=== PATIENT | female | born 1980 | race Caucasian/White ===

== ENCOUNTER → 2025-02-26 | Outpatient (RCR) | payer OTHER ==
[~2025-02-26] MED LIST: ALPRAZOLAM1 MG PO; AMBIEN10 MG PO; CYCLOBENZAPRINE10 MG PO; CYMBALTA30 MG PO; LYSINE1000 MG PO; OZEMPIC1 MG/0.71 SQ; TERBINAFINE HC250 MG PO; TIZANIDINE HCL4 MG PO; TRAZODONE HCL50 MG PO; VALACYCLOVIR500 MG PO; VITAMIN C1000 MG PO; VITAMIN D3125 MCG PO
== END ==
LOC: OT 08:35
PROVIDERS: ATTEND Orthopaedic Surgery Hand Surgery
DX: S52.501D Unspecified fracture of the lower end of right radius, subsequent encounter for closed fracture with routine healing (principal); G56.01 Carpal tunnel syndrome, right upper limb; G56.02 Carpal tunnel syndrome, left upper limb; G56.22 Lesion of ulnar nerve, left upper limb; M25.531 Pain in right wrist; M25.631 Stiffness of right wrist, not elsewhere classified; R20.2 Paresthesia of skin; R53.1 Weakness

== ENCOUNTER 2025-03-08 06:26 | Observation (INO) | payer OTHER ==
[2025-03-06 10:38] LABS: BASOPHILS # (AUTO) 0.1 (0.0-0.1); BASOPHILS % 1.2 % (0.0-1.0); EOSINOPHILS # (AUTO) 0.2 (0.0-0.4); EOSINOPHILS % 3.7 % (0.0-6.0); HEMATOCRIT 39.7 % (34.2-44.1); HEMOGLOBIN 13.4 g/dL (12.0-16.0); LYMPHOCYTES % 33.9 % (18.0-39.1); MEAN CORPUSCULAR HEMOGLOBIN 31.2 pg (28-32); MEAN CORPUSCULAR HGB CONC 33.8 g/dL (31-35); MEAN CORPUSCULAR VOLUME 92.3 fL (81-99); MONOCYTES # (AUTO) 0.5 (0.2-0.8); MONOCYTES % 7.5 % (4.4-11.3); NEUTROPHILS # (AUTO) 3.2 (2.1-6.9); NEUTROPHILS % 53.4 % (38.7-80.0); PLATELET COUNT 236 x10e3/uL (140-360); RED CELL DISTRIBUTION WIDTH 11.9 % (11.7-14.4); WHITE BLOOD COUNT 6.02 x10e3/uL (4.8-10.8)
[2025-03-06 10:56] LABS: ANION GAP 13.3 mmol/L (8-16); CALCIUM 9.2 mg/dL (8.4-10.2); CREATININE, SERUM 0.86 mg/dL (0.57-1.11); POTASSIUM 4.3 mmol/L (3.5-5.1)
[2025-03-06 11:10] LABS: INR 0.91; PROTHROMBIN TIME 12.8 seconds (11.9-14.5)
[2025-03-06 11:11] LABS: PARTIAL THROMBOPLASTIN TIME 29.2 seconds (23.8-35.5)
[~2025-03-08] VITALS: Ht 157.5 cm; Wt 72.6 kg
[2025-03-08] MEDS ORDERED: LIDOCAINE HCL 2% LOCAL INJ 5 ML SDV VIAL INJ ONE (07:22)
[2025-03-08] MEDS ORDERED: ROCURONIUM BROMIDE 1 ML IV ONE ×2 (07:22→10:14)
[2025-03-08] MEDS ORDERED: PROPOFOL IV EMULSION 10 MG/ML 20 ML VIAL ONE (07:23)
[2025-03-08] MEDS ORDERED: MIDAZOLAM HCL 2 MG/2 ML VIAL ONE (07:23)
[2025-03-08] MEDS ORDERED: FENTANYL CITRATE/PF 100MCG/2 ML INJ ONE ×2 (07:23→10:16)
[2025-03-08] MEDS ORDERED: ACETAMINOPHEN 1000 MG/100 ML 100 ML IV ONE (07:23)
[2025-03-08] MEDS ORDERED: SEVOFLURANE INHAL SOLN 250 ML PEN BTL ONE (07:23)
[2025-03-08] MEDS: LACTATED RINGER'S 1,000 ML ONE (08:17)
[2025-03-08] MEDS: CEFAZOLIN SODIUM 2 GM ONE (08:17)
[2025-03-08] MEDS ORDERED: FAMOTIDINE 20 MG/2 ML VIAL IV ONE (09:46)
[2025-03-08] MEDS ORDERED: DEXAMETHASONE SOD PHOS INJ 4 MG/ML SDV ONE (10:05)
[2025-03-08] MEDS ORDERED: ONDANSETRON HCL INJ 2MG/ML 2ML 2 MG/ML VIAL ONE (10:05)
[2025-03-08] MEDS ORDERED: SUGAMMADEX SODIUM 200 MG/2 ML VIAL IV ONE (10:22)
[2025-03-08] MEDS ORDERED: ONDANSETRON HCL INJ 2MG/ML 2ML 2 MG/ML VIAL IV PRN (11:15)
[2025-03-08] MEDS ORDERED: Morphine 10mg syringe 10 MG/ML INJ IM PRN (11:15)
[2025-03-08] MEDS ORDERED: PROMETHAZINE HCL (IM) 25 MG/ML VIAL IM PRN (11:15)
[2025-03-08] MEDS ORDERED: CEPACOL SORE THROAT LOZENGES PO PRN (11:15)
[2025-03-08] MEDS ORDERED: MAGNESIUM/ALUMINUM/SIMETHICONE 30 ML UDC PO PRN (11:15)
[2025-03-08] MEDS ORDERED: ACETAMINOPHEN 325 MG TAB PO PRN (11:15)
[2025-03-08] MEDS ORDERED: HYDROCODON-ACE1 EA12 PO (11:17)
[2025-03-08] MEDS: FENTANYL CITRATE/PF 100MCG/2 ML INJ ONE (11:49)
[2025-03-08] MEDS: MEPERIDINE HCL INJ 25 MG/ML VIAL ONE (11:49)
[2025-03-08 11:55] VITALS: BP 143/77; PULSE 93; RESP 18; TEMP 97.6; O2SAT 96
[2025-03-08] MEDS: LACTATED RINGER'S 1,000 ML IV SCH (12:07)
[2025-03-08] MEDS: CARISOPRODOL 350 MG TAB PO PRN (12:11)
[2025-03-08] MEDS: OXYCODONE/ACETAMINOPHEN 5-325 1 EACH TABLET PO PRN (12:11)
[2025-03-08] MEDS ORDERED: OXYCODONE/ACETAMINOPHEN 5-325 1 EACH TABLET PO PRN (12:15)
[2025-03-08 12:18] VITALS: BP 143/77; PULSE 93; RESP 18; TEMP 97.6; O2SAT 96
[2025-03-08] MEDS: ALPRAZOLAM 1 MG TAB PO SCH (15:28)
[2025-03-08] MEDS: CYCLOBENZAPRINE HCL 10 MG TAB PO SCH (15:28)
[2025-03-08 20:00] VITALS: BP 112/72; PULSE 83; RESP 16; TEMP 98; O2SAT 100
[2025-03-08] MEDS: ZOLPIDEM TARTRATE 10 MG TAB PO SCH (20:23)
[2025-03-08] MEDS: TIZANIDINE HCL 4 MG TAB PO SCH (20:29)
[2025-03-08] MEDS: TRAZODONE HCL 50 MG TAB PO SCH (20:30)
[2025-03-08] MEDS ORDERED: ZOLPIDEM TARTRATE 5 MG TAB PO PRN (21:00)
[2025-03-09] VITALS: BP 112/66; PULSE 83; RESP 16; TEMP 98.2; O2SAT 99
[2025-03-09 04:31] VITALS: BP 100/66; PULSE 67; RESP 18; TEMP 98.5; O2SAT 100
[2025-03-09] MEDS: HYDROMORPHONE 2MG/ML IV PRN (04:34)
[2025-03-09 07:25] VITALS: BP 113/66; PULSE 97; RESP 18; TEMP 98.5; O2SAT 97
[2025-03-09] MEDS ORDERED: ASCORBIC ACID 500 MG TAB PO SCH (09:00)
[2025-03-09] MEDS ORDERED: TERBINAFINE 250 MG TAB PO SCH (09:00)
[2025-03-09] MEDS ORDERED: DULOXETINE HCL 30 MG DELAYED RELEASE PO SCH (09:00)
== END 2025-03-09 10:10 | disposition home or self-care (01) ==
LOC: OR 06:26 → PACU V 11:42 → MED/SURG 11:50
PROVIDERS: ADMIT Neurological Surgery; ATTEND Neurological Surgery
DX: M50.022 Cervical disc disorder at C5-C6 level with myelopathy (principal); E78.5 Hyperlipidemia, unspecified; E66.01 Morbid (severe) obesity due to excess calories; Z68.29 Body mass index [BMI] 29.0-29.9, adult; F90.9 Attention-deficit hyperactivity disorder, unspecified type; F41.9 Anxiety disorder, unspecified; Z01.810 Encounter for preprocedural cardiovascular examination; Z01.812 Encounter for preprocedural laboratory examination; Z01.818 Encounter for other preprocedural examination
CPT/HCPCS: 20931; 22551; 22845; 36415; 71046; 72040; 76000; 80048; 81025; 85025; 85610; 85730; 86850; 86900; 88304; 88311; 93005; C1713 ×2; G0378 ×2; J0131; J0690 ×2; J1100; J1171; J2003; J2175; J2250; J2405; J2704; J3010; J7121 ×2

== ENCOUNTER 2025-03-22 12:19 | Emergency (ER) | payer OTHER ==
[~2025-03-22] VITALS: Ht 157.5 cm; Wt 72.6 kg
[~2025-03-22 12:19] MED LIST changes: +HYDROCODON-ACE1 EA12 PO
[2025-03-22 12:25] VITALS: PULSE 87; RESP 18; TEMP 97.9; O2SAT 100
[2025-03-22 13:29] LABS: BILIRUBIN,URINE NEGATIVE (NEGATIVE); CLARITY,URINE SL CLOUDY (CLEAR); COLOR,URINE YELLOW (YELLOW); GLUCOSE, URINE NEGATIVE (NEGATIVE); KETONES,URINE TRACE (NEGATIVE); LEUKOCYTE ESTERASE ,URINE NEGATIVE (NEGATIVE); NITRITE,URINE NEGATIVE (NEGATIVE); PH,URINE 6 (5 - 7); PROTEIN,URINE DIPSTICK NEGATIVE (NEGATIVE); URINE UROBILINOGEN 0.2 mg/dL (0.2 - 1)
[2025-03-22 13:34] LABS: BACTERIA,URINE FEW /HPF; EPITHELIAL CELLS,URINE FEW /LPF; RBC,URINE 0-5 /HPF (0-5); WBC,URINE (MAN) 0-5 /HPF (0-5)
== END 2025-03-22 16:13 | disposition home or self-care (01) ==
LOC: ER 12:43
DX: M54.2 Cervicalgia (principal); S00.83XA Contusion of other part of head, initial encounter; M25.552 Pain in left hip; M25.551 Pain in right hip; W06.XXXA Fall from bed, initial encounter; Y93.84 Activity, sleeping; Y92.89 Other specified places as the place of occurrence of the external cause; D64.9 Anemia, unspecified; E78.5 Hyperlipidemia, unspecified; K21.9 Gastro-esophageal reflux disease without esophagitis; M54.9 Dorsalgia, unspecified; G89.29 Other chronic pain; F41.9 Anxiety disorder, unspecified
CPT/HCPCS: 72125; 73522; 81001; 81025; 99284

== ENCOUNTER 2025-05-30 10:39 | Outpatient (RCR) | payer OTHER | END 2025-06-28 | LOC: PT 10:39 | PROVIDERS: ATTEND Neurological Surgery | DX: S52.501D Unspecified fracture of the lower end of right radius, subsequent encounter for closed fracture with routine healing (principal); G56.01 Carpal tunnel syndrome, right upper limb; G56.02 Carpal tunnel syndrome, left upper limb; G56.21 Lesion of ulnar nerve, right upper limb; G56.22 Lesion of ulnar nerve, left upper limb; M25.531 Pain in right wrist; M25.631 Stiffness of right wrist, not elsewhere classified; R20.2 Paresthesia of skin; R53.1 Weakness ==